=== PATIENT | male | born 1995 | race Caucasian/White ===

== ENCOUNTER 2016-11-17 16:05 | Emergency (ER) | payer OTHER ==
[2016-11-17 16:19] VITALS: BP 123/82
--- NOTE | 2016-11-17 17:12 | UC ---
Throat Pain/Nasal Pipe HPI - HPI Summary HPI Summary: Pt presents with c/o sore throat and URI like symptoms X 2-3 days. Denies fever or chills. - History of Current Complaint Chief Complaint: UCGeneralIllness Stated Complaint: SORE THROAT Time Seen by Provider: 11/17/16 16:24 Hx Obtained From: Patient Onset/Duration: Gradual Onset, Lasting Days, Still Present Severity: Mild Pain Intensity: 5 Pain Scale Used: 0-10 Numeric Associated Signs & Symptoms: Positive: Dysphagia - Allergies/Home Medications Allergies/Adverse Reactions: Allergies Allergy/AdvReac Type Severity Reaction Status Date / Time Amoxicillin [From Augmentin] Allergy Intermediate Vomiting Verified 11/17/16 16: 14 Clavulanic Acid Allergy Intermediate Vomiting Verified 11/17/16 16:14 [From Augmentin] Home Medications: Home Medications Citalopram TAB* [Celexa TAB*] 1 tab BEDTIME 11/17/16 [History Confirmed 11/17/16 ] Loratadine 1 tab BID 11/17/16 [History Confirmed 11/17/16] Pantoprazole TAB (NF) [Protonix TAB (NF)] 1 tab BID 11/17/16 [History Confirmed 11/17/16] PMH/Surg Hx/FS Hx/Imm Hx Previously Healthy: Yes - Surgical History Surgical History: Yes Surgery Procedure, Year, and Place: [facility]. Endoscopy - Family History Known Family History: Positive: Cardiac Disease - Social History Occupation: Student - at [employer] Lives: Dormitory/Roommates Alcohol Use: Occasionally Substance Use Type: None Smoking Status (MU): Never Smoked Tobacco Have You Smoked in the Last Year: No - Immunization History Most Recent Influenza Vaccination: 2017 Review of Systems Constitutional: Fatigue Skin: Negative Eyes: Negative ENT: Sore Throat Respiratory: Negative Cardiovascular: Negative Gastrointestinal: Negative Genitourinary: Negative Motor: Negative Neurovascular: Negative Musculoskeletal: Negative Neurological: Negative Psychological: Negative Is Patient Immunocompromised?: No All Other Systems Reviewed And Are Negative: Yes Physical Exam Triage Information Reviewed: Yes Appearance: Well-Appearing Vital Signs: Initial Vital Signs Temp 98.7 F 11/17/16 16:17 Pulse 82 11/17/16 16:17 Resp 16 11/17/16 16:17 BP 123/82 11/17/16 16:17 Pulse Ox 100 11/17/16 16:17 Vital Signs Reviewed: Yes Eye Exam: Normal ENT Exam: Other ENT: Positive: Pharyngeal erythema Dental Exam: Normal Neck exam: Normal Respiratory Exam: Normal Cardiovascular Exam: Normal Musculoskeletal Exam: Normal Neurological Exam: Normal Psychological Exam: Normal Skin Exam: Normal Throat Pain/Nasal Course/Dx - Differential Dx/Diagnosis Differential Diagnosis/HQI/PQRI: Pharyngitis Provider Diagnoses: Strep throat Discharge - Discharge Plan Condition: Stable Disposition: HOME Prescriptions: Azithromycin [Azithromycin 500 MG TAB] 500 mg PO DAILY #5 tab Patient Education Materials: Strep Throat (ED) Referrals: Non Staff,Doctor [Primary Care Provider] - If Needed Additional Instructions: Please follow up with your PCP or return to clinic as needed
== END 2016-11-17 16:58 | disposition home or self-care (01) ==
LOC: UCCORT 16:05
DX: J02.0 Streptococcal pharyngitis (principal); Z88.3 Allergy status to other anti-infective agents
CPT/HCPCS: 87651; 99202; G0463

== ENCOUNTER 2017-01-12 15:28 | Emergency (ER) | payer OTHER ==
[2017-01-12 15:50] VITALS: BP 123/70
--- NOTE | 2017-01-12 16:21 | UC ---
Throat Pain/Nasal Pipe HPI - HPI Summary HPI Summary: TWO DAYS OF SORE THROAT SWOLLEN TONSILS, SLIGHT COUGH. - History of Current Complaint Chief Complaint: UCRespiratory Stated Complaint: SORE THROAT Time Seen by Provider: 01/12/17 15:35 Hx Obtained From: Patient Onset/Duration: Gradual Onset, Lasting Days Severity: Moderate Cough: None Associated Signs & Symptoms: Positive: Hoarseness, Fever - Epiglottits Risk Factors Epiglottis Risk Factors: Negative - Allergies/Home Medications Allergies/Adverse Reactions: Allergies Allergy/AdvReac Type Severity Reaction Status Date / Time Amoxicillin [From Augmentin] Allergy Intermediate Vomiting Verified 01/12/17 15: 50 Clavulanic Acid Allergy Intermediate Vomiting Verified 01/12/17 15:50 [From Augmentin] PMH/Surg Hx/FS Hx/Imm Hx Previously Healthy: Yes - Surgical History Surgical History: Yes Surgery Procedure, Year, and Place: [place]. Endoscopy - Family History Known Family History: Positive: Cardiac Disease - Social History Occupation: Student Lives: With Family Alcohol Use: Occasionally Substance Use Type: None Smoking Status (MU): Never Smoked Tobacco Have You Smoked in the Last Year: No - Immunization History Most Recent Influenza Vaccination: 2017 Review of Systems Constitutional: Negative Skin: Negative Eyes: Negative ENT: Sore Throat Respiratory: Cough Cardiovascular: Negative Gastrointestinal: Negative Genitourinary: Negative Motor: Negative Neurovascular: Negative Musculoskeletal: Negative Neurological: Negative Psychological: Negative Is Patient Immunocompromised?: No All Other Systems Reviewed And Are Negative: Yes Physical Exam Triage Information Reviewed: Yes Appearance: No Pain Distress, Well-Nourished, Ill-Appearing Vital Signs: Initial Vital Signs Temp 98.2 F 01/12/17 15:33 Pulse 69 01/12/17 15:33 Resp 14 01/12/17 15:33 BP 123/70 01/12/17 15:33 Pulse Ox 98 01/12/17 15:33 Vital Signs Reviewed: Yes Eye Exam: Normal ENT: Positive: Hearing grossly normal, Pharyngeal erythema, TMs normal, Tonsillar swelling Dental Exam: Normal Neck exam: Normal Neck: Positive: Supple, Nontender, No Lymphadenopathy Respiratory Exam: Normal Respiratory: Positive: Chest non-tender, Lungs clear, Normal breath sounds, No respiratory distress, No accessory muscle use Cardiovascular Exam: Normal Cardiovascular: Positive: RRR, No Murmur, Pulses Normal Abdominal Exam: Normal Abdomen Description: Positive: Nontender, No Organomegaly, Soft. Negative: CVA Tenderness (R), CVA Tenderness (L) Musculoskeletal Exam: Normal Musculoskeletal: Positive: Strength Intact, ROM Intact Neurological Exam: Normal Psychological Exam: Normal Skin Exam: Normal Throat Pain/Nasal Course/Dx - Differential Dx/Diagnosis Differential Diagnosis/HQI/PQRI: Mononucleosis, Peritonsillar Abscess, Pharyngitis, Tonsillitis Provider Diagnoses: STREP TONSILITIS Discharge - Discharge Plan Condition: Stable Disposition: HOME Prescriptions: Cephalexin CAP* [Keflex CAP*] 500 mg PO QID #28 cap Patient Education Materials: Strep Throat (ED) Forms: *School Release Referrals: Non Staff,Doctor [Primary Care Provider] -
== END 2017-01-12 16:30 | disposition home or self-care (01) ==
LOC: UCCORT 15:28
DX: J03.00 Acute streptococcal tonsillitis, unspecified (principal); Z88.1 Allergy status to other antibiotic agents
CPT/HCPCS: 87651; 99212; G0463

== ENCOUNTER 2017-02-18 18:13 | Emergency (ER) | payer OTHER | END 2017-02-18 19:42 | disposition left against medical advice (07) | LOC: UCCORT 18:13 | DX: S09.90XA Unspecified injury of head, initial encounter (principal); X58.XXXA Exposure to other specified factors, initial encounter; Y93.9 Activity, unspecified; Y92.9 Unspecified place or not applicable; Z53.21 Procedure and treatment not carried out due to patient leaving prior to being seen by health care provider ==

== ENCOUNTER 2017-02-18 20:00 | Emergency (ER) | payer OTHER | END 2017-02-18 20:51 | disposition left against medical advice (07) | LOC: UCCORT 20:00 | DX: R51 Headache (principal); Z53.21 Procedure and treatment not carried out due to patient leaving prior to being seen by health care provider ==

== ENCOUNTER 2017-02-22 16:27 | Emergency (ER) | payer OTHER ==
[2017-02-22 17:31] VITALS: BP 133/82
--- NOTE | 2017-02-22 17:54 | UC ---
Throat Pain/Nasal Pipe HPI - HPI Summary HPI Summary: Sore throat and body aches for about a week. he has had malaise as well. Mild cough. No prior medical concerns. It hurts more to swallow. - History of Current Complaint Chief Complaint: UCGeneralIllness Stated Complaint: SORE THROAT/FATIGUE/BODY ACHES Time Seen by Provider: 02/22/17 17:37 Hx Obtained From: Patient Onset/Duration: Gradual Onset, Lasting Days Severity: Moderate Cough: Nonproductive Associated Signs & Symptoms: Positive: Dysphagia. Negative: Fever, Vomiting, Rash - Epiglottits Risk Factors Epiglottis Risk Factors: Negative - Allergies/Home Medications Allergies/Adverse Reactions: Allergies Allergy/AdvReac Type Severity Reaction Status Date / Time Amoxicillin [From Augmentin] Allergy Intermediate Vomiting Verified 02/22/17 17: 31 Clavulanic Acid Allergy Intermediate Vomiting Verified 02/22/17 17:31 [From Augmentin] Home Medications: Home Medications Amphetamine-Dextroamphetamine [Adderall Xr 10 mg] 2 cap PO DAILY 02/22/17 [ History Confirmed 02/22/17] Calcium Carbonate [Calcium 600] 600 mg PO DAILY 02/22/17 [History Confirmed ] PMH/Surg Hx/FS Hx/Imm Hx Previously Healthy: Yes - Surgical History Surgical History: Yes Surgery Procedure, Year, and Place: [place]. Endoscopy - Family History Known Family History: Positive: Cardiac Disease - Social History Occupation: Student Alcohol Use: Occasionally Substance Use Type: None Smoking Status (MU): Never Smoked Tobacco Have You Smoked in the Last Year: No - Immunization History Most Recent Influenza Vaccination: 2017 Review of Systems ENT: Sore Throat All Other Systems Reviewed And Are Negative: Yes Physical Exam Triage Information Reviewed: Yes Appearance: Well-Appearing, No Pain Distress, Well-Nourished Vital Signs: Initial Vital Signs Temp 98.6 F 02/22/17 17:28 Pulse 105 02/22/17 17:28 Resp 16 02/22/17 17:28 BP 133/82 02/22/17 17:28 Pulse Ox 98 02/22/17 17:28 Vital Signs Reviewed: Yes Eyes: Positive: Conjunctiva Clear ENT: Positive: Pharyngeal erythema, Tonsillar swelling, Tonsillar exudate, Uvula midline. Negative: Nasal congestion, TMs normal, TM bulging, TM dull, TM red Neck: Positive: Supple, Nontender, No Lymphadenopathy Respiratory: Positive: Normal breath sounds, No respiratory distress, No accessory muscle use. Negative: Respiratory distress, Decreased breath sounds, Accessory muscle use, Crackles, Rhonchi, Stridor Cardiovascular: Positive: No Murmur, Pulses Normal, Brisk Capillary Refill Abdomen Description: Positive: No Organomegaly, Soft. Negative: Distended, Guarding Musculoskeletal: Positive: Strength Intact, ROM Intact, No Edema Neurological: Positive: Alert, Muscle Tone Normal. Negative: Fatigued Psychological: Positive: Age Appropriate Behavior Skin: Positive: rashes Throat Pain/Nasal Course/Dx - Differential Dx/Diagnosis Provider Diagnoses: Strep throat. Discharge - Discharge Plan Condition: Good Disposition: HOME Prescriptions: Cefdinir [Cefdinir 300 MG CAP] 300 mg PO BID #20 cap Patient Education Materials: Strep Throat (ED) Referrals: Non Staff,Doctor [Primary Care Provider] - Additional Instructions: REturrn here for any worsening.
== END 2017-02-22 17:56 | disposition home or self-care (01) ==
LOC: UCCORT 16:27
DX: J02.0 Streptococcal pharyngitis (principal); Z88.0 Allergy status to penicillin
CPT/HCPCS: 87651; 99212; G0463

== ENCOUNTER 2017-05-11 18:58 | Emergency (ER) | payer OTHER ==
[2017-05-11 19:11] VITALS: BP 125/74
--- NOTE | 2017-05-11 19:16 | UC ---
Respiratory Complaint HPI - HPI Summary HPI Summary: 21 yo male with sore throat x 2-3 day no URI symptoms or cough' no f/c - History of Current Complaint Chief Complaint: UCGeneralIllness Stated Complaint: SORE THROAT Time Seen by Provider: 05/11/17 19:02 Hx Obtained From: Patient Onset/Duration: Sudden Onset, Lasting Days Timing: Constant Severity Initially: Mild Severity Currently: Mild Pain Intensity: 4 Pain Scale Used: 0-10 Numeric Aggravating Factors: Nothing Alleviating Factors: Nothing - Allergies/Home Medications Allergies/Adverse Reactions: Allergies Allergy/AdvReac Type Severity Reaction Status Date / Time MS Amoxicillin Allergy Intermediate Vomiting Verified 02/22/17 17:31 [From Augmentin] MS Clavulanic Acid Allergy Intermediate Vomiting Verified 02/22/17 17:31 [From Augmentin] Home Medications: Home Medications Acetaminophen TAB* [Tylenol TAB*] 650 mg PO Q4H PRN 05/11/17 [History Confirmed 05/11/17] Ibuprofen TAB* [Advil TAB*] 400 mg PO Q6H PRN 05/11/17 [History Confirmed ] PMH/Surg Hx/FS Hx/Imm Hx Previously Healthy: Yes - Surgical History Surgical History: Yes Surgery Procedure, Year, and Place: [place]. Endoscopy - Family History Known Family History: Positive: Cardiac Disease - Social History Alcohol Use: Rare Substance Use Type: None Smoking Status (MU): Never Smoked Tobacco Have You Smoked in the Last Year: No - Immunization History Most Recent Influenza Vaccination: 2016 Review of Systems Constitutional: Negative Skin: Negative Eyes: Negative ENT: Sore Throat Respiratory: Negative Cardiovascular: Negative Gastrointestinal: Negative Genitourinary: Negative Motor: Negative Neurovascular: Negative Musculoskeletal: Negative Neurological: Negative Psychological: Negative Is Patient Immunocompromised?: No All Other Systems Reviewed And Are Negative: Yes Physical Exam Triage Information Reviewed: Yes Appearance: Well-Appearing, No Pain Distress, Well-Nourished Vital Signs: Initial Vital Signs Temp 99 F 05/11/17 19:07 Pulse 87 05/11/17 19:07 Resp 16 05/11/17 19:07 BP 125/74 05/11/17 19:07 Pulse Ox 99 05/11/17 19:07 Eye Exam: Normal ENT: Positive: Hearing grossly normal, Pharyngeal erythema, TMs normal, Tonsillar swelling, Uvula midline. Negative: Nasal congestion, Nasal drainage, TM bulging, TM dull, TM red, Tonsillar exudate, Trismus, Muffled voice, Hoarse voice Neck: Positive: Supple, Nontender, Enlarged Nodes @ - ant cervical Respiratory: Positive: Lungs clear, Normal breath sounds, No respiratory distress Cardiovascular: Positive: RRR, No Murmur Musculoskeletal: Positive: ROM Intact, No Edema Neurological: Positive: Alert Psychological Exam: Normal Skin Exam: Normal UC Diagnostic Evaluation - Laboratory Pertinent Lab Values Are: WNL - strep (-) O2 Sat by Pulse Oximetry: 99 - normal/not hypoxic Respiratory Course/Dx - Differential Dx/Diagnosis Provider Diagnoses: tonsillitis Discharge - Discharge Plan Condition: Stable Disposition: HOME Prescriptions: Penicillin VK 500 MG TAB(NF) [Penicillin VK 500 mg Tab] 1,000 mg PO BID #40 tab Patient Education Materials: Tonsillitis (ED) Referrals: Non Staff,Doctor [Primary Care Provider] - Additional Instructions: rest fluids recheck in 3-4 days if not better
== END 2017-05-11 19:36 | disposition home or self-care (01) ==
LOC: UCCORT 18:58
DX: J03.90 Acute tonsillitis, unspecified (principal); Z88.1 Allergy status to other antibiotic agents; Z88.8 Allergy status to other drugs, medicaments and biological substances
CPT/HCPCS: 87651; 99212; G0463

== ENCOUNTER 2017-05-29 16:24 | Emergency (ER) | payer OTHER ==
--- NOTE | 2017-05-29 16:53 | UC ---
UC General HPI - HPI Summary HPI Summary: PT STATES HE HAS HAD FATIGUE FOR ABOUT 3-4 MONTHS. HIS PCP IN [place] TESTED HIM FOR MONO AND IT WAS NEGATIVE. HE HAS NO HX OF THYROID DISEASE OR ANEMIA. HE ADMITS TO DEPRESSION BUT STATES IT IS WELL CONTROLLED WITH MEDICATION. PT WANTS TO BE TESTED FOR LYME DISEASE. HE STATES HE HAS A RELATIVE WHO HAD IT AND HIS GIRLFRIEND WAS DIAGNOSED WITH IT. HE DENIES ANY KNOWN HX OF TICK BITE, RASH, FEVER AND JOINT PAIN. HE FEELS FINE OTHERWISE. - History of Current Complaint Chief Complaint: UCGeneralIllness Stated Complaint: TIRED, [place] DISEASE TEST Time Seen by Provider: 05/29/17 16:44 Hx Obtained From: Patient Associated Signs & Symptoms: Negative: Fever - Allergy/Home Medications Allergies/Adverse Reactions: Allergies Allergy/AdvReac Type Severity Reaction Status Date / Time No Known Allergies Allergy Verified 05/29/17 16:43 PMH/Surg Hx/FS Hx/Imm Hx Psychological History: Depression - Surgical History Surgical History: Yes Surgery Procedure, Year, and Place: [place]. Endoscopy - Family History Known Family History: Positive: Cardiac Disease - Social History Occupation: Student Lives: Dormitory/Roommates Alcohol Use: Rare Substance Use Type: None Smoking Status (MU): Never Smoked Tobacco Have You Smoked in the Last Year: No - Immunization History Most Recent Influenza Vaccination: 2017 Vaccination Up to Date: Yes Review of Systems Constitutional: Fatigue Skin: Negative Eyes: Negative ENT: Negative Respiratory: Negative Cardiovascular: Negative Gastrointestinal: Negative Genitourinary: Negative Motor: Negative Neurovascular: Negative Musculoskeletal: Negative Neurological: Negative Psychological: Negative Is Patient Immunocompromised?: No All Other Systems Reviewed And Are Negative: Yes Physical Exam Triage Information Reviewed: Yes Appearance: Well-Appearing Vital Signs Reviewed: Yes Eye Exam: Normal ENT: Positive: Normal ENT inspection Neck: Positive: Supple, Nontender, No Lymphadenopathy Respiratory: Positive: Lungs clear, Normal breath sounds Cardiovascular: Positive: RRR, No Murmur Abdomen Description: Positive: Nontender, No Organomegaly, Soft Bowel Sounds: Positive: Present Musculoskeletal: Positive: ROM Intact Neurological: Positive: Alert Psychological: Positive: Age Appropriate Behavior Skin Exam: Normal Skin: Negative: rashes Course/Dx - Course Course Of Treatment: no signs of critical anemia, hypothyroid(myxedema) or acute depression. he has had negative mono testing. will r/o lyme disease. need for close f/u and recheck stressed at time of visit for additional evaluation and recheck in 1 week which pt agrees to.the lyme result should be back by then. he will f/u sooner for any worsening. - Differential Dx - Multi-Symptom Provider Diagnoses: fatigue. rule out lyme disease Discharge - Discharge Plan Condition: Stable Disposition: HOME Patient Education Materials: Lyme Disease (ED), Fatigue (ED) Referrals: Non Staff,Doctor [Primary Care Provider] - Additional Instructions: FOLLOW UP WITH THE [facility] IN 7 DAYS FOR A RECHECK. THE LYME TITER SHOULD BE AVAILABLE IN 5-7 DAYS.
[2017-05-29 17:02] VITALS: BP 130/80
== END 2017-05-29 17:29 | disposition home or self-care (01) ==
LOC: UCCORT 16:24
DX: R53.83 Other fatigue (principal); Z11.8 Encounter for screening for other infectious and parasitic diseases
CPT/HCPCS: 86618; 99211; G0463

== ENCOUNTER 2018-07-02 15:15 | Emergency (ER) | payer OTHER ==
[2018-07-02 16:36] VITALS: BP 150/79
--- NOTE | 2018-07-02 16:43 | UC ---
Respiratory Complaint HPI - HPI Summary HPI Summary: 22 yo male with 3 day hx sinus pressure and albert/nasal congestion and post nasal drip left ear pain (mild) and poppin no f/c no myalgias - History of Current Complaint Chief Complaint: UCRespiratory Stated Complaint: COUGH/CONGESTION Time Seen by Provider: 07/02/18 16:36 Hx Obtained From: Patient Onset/Duration: Gradual Onset Timing: Constant Severity Initially: Mild Severity Currently: Moderate Pain Intensity: 2 Pain Scale Used: 0-10 Numeric Character: Cough: Nonproductive Aggravating Factors: Nothing Associated Signs And Symptoms: Positive: Nasal Congestion, Sinus Discomfort - Allergies/Home Medications Allergies/Adverse Reactions: Allergies Allergy/AdvReac Type Severity Reaction Status Date / Time amoxicillin [From Augmentin] Allergy Intermediate Vomiting Verified 07/02/18 16: 30 clavulanic acid Allergy Intermediate Vomiting Verified 07/02/18 16:30 [From Augmentin] Home Medications: Home Medications Ferrous Sulfate TAB* 1 tab QPM 07/02/18 [History Confirmed 07/02/18] PMH/Surg Hx/FS Hx/Imm Hx Previously Healthy: Yes GI/ History: Gastroesophageal Reflux - Surgical History Surgical History: Yes Surgery Procedure, Year, and Place: [place]. Endoscopy - Family History Known Family History: Positive: Cardiac Disease, Hypertension, Diabetes - Social History Alcohol Use: Occasionally Substance Use Type: None Smoking Status (MU): Never Smoked Tobacco Have You Smoked in the Last Year: No - Immunization History Most Recent Influenza Vaccination: 2017 Vaccination Up to Date: Yes Review of Systems All Other Systems Reviewed And Are Negative: Yes Constitutional: Positive: Fatigue Skin: Positive: Negative Eyes: Positive: Negative ENT: Positive: Ear Ache, Nasal Discharge, Sinus Congestion, Sinus Pain/ Tenderness Respiratory: Positive: Cough Cardiovascular: Positive: Negative Gastrointestinal: Positive: Negative Genitourinary: Positive: Negative Motor: Positive: Negative Neurovascular: Positive: Negative Musculoskeletal: Positive: Negative Neurological: Positive: Negative Psychological: Positive: Negative Physical Exam Triage Information Reviewed: Yes Appearance: Well-Appearing, No Pain Distress, Well-Nourished Vital Signs: Initial Vital Signs Temp 98.7 F 07/02/18 16:32 Pulse 89 07/02/18 16:32 Resp 16 07/02/18 16:32 BP 150/79 07/02/18 16:32 Pulse Ox 97 07/02/18 16:32 Vital Signs Reviewed: Yes Eyes: Positive: Conjunctiva Clear ENT: Positive: Hearing grossly normal, Pharynx normal, Nasal congestion, TM bulging - L, TM red - L, Uvula midline. Negative: Nasal drainage, TMs normal, Tonsillar swelling, Tonsillar exudate, Trismus, Muffled voice, Hoarse voice, Dental tenderness, Sinus tenderness Dental Exam: Normal Neck: Positive: Supple, Nontender, No Lymphadenopathy Respiratory: Positive: Lungs clear, Normal breath sounds, No respiratory distress, No accessory muscle use Cardiovascular: Positive: RRR, No Murmur Musculoskeletal: Positive: ROM Intact, No Edema Neurological: Positive: Alert Psychological Exam: Normal Skin Exam: Normal Respiratory Course/Dx - Differential Dx/Diagnosis Provider Diagnosis: Left otitis media, Viral URI with cough, Elevated BP without diagnosis of hypertension Discharge - Sign-Out/Discharge Documenting (check all that apply): Patient Departure All imaging exams completed and their final reports reviewed: No Studies - Discharge Plan Condition: Stable Disposition: HOME Prescriptions: Amoxicillin PO (*) [Amoxicillin 500 MG CAP*] 500 mg PO BID #20 cap Patient Education Materials: Ear Infection (ED), Rhinosinusitis (ED) Referrals: No Primary Care Phys,NOPCP [Primary Care Provider] - Additional Instructions: use your nasal spray BP here 150/79 recheck in 2-12 weeks - Billing Disposition and Condition Condition: STABLE Disposition: Home
== END 2018-07-02 16:50 | disposition home or self-care (01) ==
LOC: UCCORT 15:15
DX: H66.92 Otitis media, unspecified, left ear (principal); J06.9 Acute upper respiratory infection, unspecified; R05 Cough; R03.0 Elevated blood-pressure reading, without diagnosis of hypertension; Z88.0 Allergy status to penicillin
CPT/HCPCS: 99212; G0463